=== PATIENT | female | born 1960 | race Hispanic/Latino ===

== ENCOUNTER 2019-01-06 17:25 | Emergency (ER) | payer OTHER | END 2019-01-06 18:17 | disposition home or self-care (01) | LOC: EDH 17:25 | DX: F41.9 Anxiety disorder, unspecified (principal); F32.9 Major depressive disorder, single episode, unspecified; Z76.0 Encounter for issue of repeat prescription; Z87.442 Personal history of urinary calculi; Z88.0 Allergy status to penicillin; Z88.8 Allergy status to other drugs, medicaments and biological substances; Z72.0 Tobacco use | CPT/HCPCS: 99281 ==

== ENCOUNTER 2025-05-14 18:31 | Emergency (ER) | payer OTHER ==
[~2025-05-14] VITALS: Ht 162.6 cm; Wt 73.9 kg
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
--- NOTE | 2025-05-14 20:16 | NUR ---
RT ARM COAPTATION SPLINT AND SLING APPLIED, PT TOLERATED WELL
[2025-05-14] MEDS ORDERED: ACET-2079 PO (20:23)
[2025-05-14] MEDS: HYDROcodone/APAP 5/325 1 TAB TABLET PO ONE (20:23)
[2025-05-14 20:41] VITALS: BP 121/74; PULSE 68; RESP 20; TEMP 98.2; O2SAT 99
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
== END 2025-05-14 20:42 | disposition home or self-care (01) ==
LOC: EDH 18:31
DX: S42.301A Unspecified fracture of shaft of humerus, right arm, initial encounter for closed fracture (principal); Z88.0 Allergy status to penicillin; Z88.1 Allergy status to other antibiotic agents; V49.49XA Driver injured in collision with other motor vehicles in traffic accident, initial encounter; Y93.89 Activity, other specified; Y92.488 Other paved roadways as the place of occurrence of the external cause; Y99.8 Other external cause status
CPT/HCPCS: 29105; 29125; 73060; 99283